=== PATIENT | male | born 1965 | race Native Hawaiian/Other Pacific Islander ===

== ENCOUNTER 2019-05-15 18:15 | Emergency (ER) | payer OTHER ==
[~2019-05-15] VITALS: Ht 175.3 cm; Wt 92.1 kg
[2019-05-15 18:37] VITALS: BP 152/88
== END 2019-05-15 20:12 | disposition home or self-care (01) ==
LOC: ER 18:20
DX: J06.9 Acute upper respiratory infection, unspecified (principal); Z87.442 Personal history of urinary calculi; Z91.013 Allergy to seafood
CPT/HCPCS: 71045-TC